=== PATIENT | male | born 1945 ===

== ENCOUNTER 2024-10-07 09:46 | Outpatient (AMB) | payer MEDICARE, SELFPAY ==
--- OUTSIDE RECORDS SUMMARY | 2024-10-07 10:37 | XMS_ITS ---
[facility] Organization Unknown Care Team Organization Name Specialty Phone Email Start Date End [facility] 03/08/2023
== END 2024-10-07 15:49 | disposition home or self-care (01) ==
LOC: HO.HMGAL 09:46
PROVIDERS: PCP Internal Medicine; Visit Provider Registered Nurse Emergency
DX: J30.89 Other allergic rhinitis (principal)
CPT/HCPCS: 95117; 95165

== ENCOUNTER 2024-10-28 11:11 | Outpatient (AMB) | payer MEDICARE, SELFPAY | END 2024-10-28 11:21 | disposition home or self-care (01) | LOC: HO.HMGAL 11:11 | PROVIDERS: PCP Internal Medicine; Visit Provider Registered Nurse Emergency | DX: J30.89 Other allergic rhinitis (principal) | CPT/HCPCS: 95117; 95165 ==

== ENCOUNTER 2024-11-20 13:29 | Outpatient (AMB) | payer MEDICARE, OTHER, SELFPAY | END 2024-11-20 13:29 | disposition home or self-care (01) | LOC: HO.HMGAL 13:29 | PROVIDERS: PCP Internal Medicine; Visit Provider Registered Nurse Emergency | DX: J30.89 Other allergic rhinitis (principal) | CPT/HCPCS: 95117; 95165 ==

== ENCOUNTER 2024-12-09 10:42 | Outpatient (AMB) | payer MEDICARE, OTHER, SELFPAY | END 2024-12-09 10:42 | disposition home or self-care (01) | LOC: HO.HMGAL 10:42 | PROVIDERS: PCP Internal Medicine; Visit Provider Registered Nurse Emergency | DX: J30.89 Other allergic rhinitis (principal) | CPT/HCPCS: 95117; 95165 ==

== ENCOUNTER 2024-12-30 10:45 | Outpatient (AMB) | payer MEDICARE, OTHER, SELFPAY | END 2024-12-30 10:46 | disposition home or self-care (01) | LOC: HO.HMGAL 10:45 | PROVIDERS: PCP Internal Medicine; Visit Provider Registered Nurse Emergency | DX: J30.89 Other allergic rhinitis (principal) | CPT/HCPCS: 95117; 95165 ==

== ENCOUNTER 2025-01-20 10:54 | Outpatient (AMB) | payer MEDICARE, OTHER, SELFPAY | END 2025-01-20 10:54 | disposition home or self-care (01) | LOC: HO.HMGAL 10:54 | PROVIDERS: PCP Internal Medicine; Visit Provider Registered Nurse Emergency | DX: J30.89 Other allergic rhinitis (principal) | CPT/HCPCS: 95117; 95165 ==